=== PATIENT | male | born 1990 | race African-American/Black ===

== ENCOUNTER 2017-04-15 08:54 | Emergency (ER) | payer OTHER ==
[~2017-04-15] VITALS: Ht 167.6 cm; Wt 59.0 kg
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
[2017-04-15 18:40] LABS: POC - CREATININE 0.85 mg/dL (0.64-1.27); POC - GFR >60.0 mL/min (>60)
== END 2017-04-15 14:00 | disposition home or self-care (01) ==
LOC: CED 08:54
PROVIDERS: Physician Assistant
DX: S46.911A Strain of unspecified muscle, fascia and tendon at shoulder and upper arm level, right arm, initial encounter (principal); S16.1XXA Strain of muscle, fascia and tendon at neck level, initial encounter; S50.311A Abrasion of right elbow, initial encounter; W50.0XXA Accidental hit or strike by another person, initial encounter; Y92.410 Unspecified street and highway as the place of occurrence of the external cause
CPT/HCPCS: 70486; 70498; 73030; 73080; 73130; 73630; 82565; 90471; 99284; Q9967